=== PATIENT | female | born 1975 | race Two or more races ===

== ENCOUNTER → 2017-09-02 | Outpatient (CLI) | payer OTHER | END | disposition home or self-care (01) | LOC: NUCLEAR 07:00 | DX: I27.20 Pulmonary hypertension, unspecified (principal) ==

== ENCOUNTER 2018-03-01 12:23 | Outpatient (CLI) | payer OTHER ==
[~2018-03-01] VITALS: Ht 165.1 cm; Wt 77.1 kg
== END 2018-03-01 12:40 | disposition home or self-care (01) ==
LOC: OFIC 805 12:23
DX: J30.89 Other allergic rhinitis (principal); R07.0 Pain in throat; K21.0 Gastro-esophageal reflux disease with esophagitis

== ENCOUNTER 2018-05-03 11:42 | Outpatient (CLI) | payer OTHER ==
[~2018-05-03] VITALS: Ht 152.4 cm; Wt 77.1 kg
== END 2018-05-03 12:00 | disposition home or self-care (01) ==
LOC: OFIC 805 11:42
DX: J30.89 Other allergic rhinitis (principal); R07.0 Pain in throat; K21.0 Gastro-esophageal reflux disease with esophagitis